=== PATIENT | male | born 1995 | race Caucasian/White ===

== ENCOUNTER 2016-06-06 14:37 | Emergency (ER) | payer OTHER ==
[2016-06-06 14:48] VITALS: BP 125/66; BMI 23.7
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
[2016-06-06] MEDS ORDERED: TORADOL 30 MG VIAL IVP ONE (15:51)
[2016-06-06] MEDS ORDERED: TORADOL 30 MG VIAL ONE (15:57)
== END 2016-06-06 16:23 | disposition home or self-care (01) ==
LOC: ER 14:37
DX: S13.9XXA Sprain of joints and ligaments of unspecified parts of neck, initial encounter (principal); S16.1XXA Strain of muscle, fascia and tendon at neck level, initial encounter; S39.012A Strain of muscle, fascia and tendon of lower back, initial encounter; V87.7XXA Person injured in collision between other specified motor vehicles (traffic), initial encounter; R51 Headache
CPT/HCPCS: 70450; 72125; 72131; 96365; 96374; 99283; J1885